=== PATIENT | male | born 1975 | race Caucasian/White ===

== ENCOUNTER 2016-12-06 12:29 | Emergency (ER) | payer OTHER ==
[~2016-12-06] VITALS: Ht 175.3 cm; Wt 98.0 kg
[2016-12-06 12:33] VITALS: BP 140/96; PULSE 88; RESP 16; TEMP 98; O2SAT 97
[2016-12-06] MEDS ORDERED: PRED20 PO (13:37)
[2016-12-06] MEDS ORDERED: ROBA750T PO (13:37)
[2016-12-06] MEDS ORDERED: IBUP800T23 PO (13:37)
--- NOTE | 2016-12-06 13:44 | PD ---
HPI Chief Complaint: Back/ Neck Pain or Injury Time Seen by Provider: 13:25 Travel History International Travel<30 days: No Contact w/Intl Traveler<30days: No Traveled to known affect area: No History of Present Illness HPI 41-year-old male presents to the emergency room for evaluation of right-sided low back pain that radiates down the right lower extremity for the past 3 days. Patient has history of sciatica that occurred 1 month ago and lasted 2 weeks but improved on its own. States symptoms recurred 3 days ago without any trauma or injury. Pain is worsened with ambulation and range of motion of the back. States he has to lean to the left to get relief. He has no pain when he lies flat on his back. He took 800 mg of ibuprofen onset of symptoms but did not improve his symptoms at all so he stopped taking it. 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 Denies loss of bowel or bladder control, saddle anesthesia, or lower extremity paresthesias. Denies IV drug use, fever, chills, weight loss. PFSH Past Medical History Hx Anticoagulant Therapy: No Cardiovascular Problems: Yes (HTN) Diabetes: No Hypertension: Yes (BORDERLINE) Immunizations Current: Yes Tetanus Vaccination: < 5 Years Influenza Vaccination: No Past Surgical History Other Surgery: Yes (RIGHT INGUINAL HERNIA REPAIR) Social History Alcohol Use: No Tobacco Use: No (FORMER) Substance Use: No Allergies-Medications (Allergen,Severity, Reaction): Coded Allergies: No Known Allergies (Unverified , 12/06/16) Reported Meds & Prescriptions Reported Meds & Active Scripts Active Robaxin (Methocarbamol) 750 Mg Tab 750 Mg PO Q8HR Ibuprofen 800 Mg Tab 800 Mg PO Q8H PRN Prednisone 20 Mg Tab 40 Mg PO DAILY 5 Days Review of Systems Except as stated in HPI: all other systems reviewed are Neg Physical Exam Narrative GENERAL: Well-nourished, well-developed male in no acute distress. Afebrile. Ambulatory. SKIN: Warm and dry. No erythema or ecchymosis. HEAD: Normocephalic. EYES: No scleral icterus. No injection or drainage. NECK: Supple, trachea midline. No JVD or lymphadenopathy. BACK: No CVA tenderness. No rash. No point tenderness on palpation of the spine. Tenderness to palpation in the right paraspinous lumbar musculature. Strength 5/5 and equal in lower extremities. 2+ patellar and Achilles reflexes the right lower extremity. Data Data Last Documented VS Vital Signs Date Time Temp Pulse Resp B/P Pulse Ox O2 Delivery O2 Flow Rate FiO2 12/06/16 12:33 98.0 88 16 140/96 97 Orders Cyclobenzaprine (Flexeril) (12/06/16 13:45) Ibuprofen (Motrin) (12/06/16 13:45) [facility] Medical Decision Making Medical Screen Exam Complete: Yes Emergency Medical Condition: Yes Medical Record Reviewed: Yes Differential Diagnosis Degenerative disc disease versus sciatica versus lumbar strain Narrative Course 41-year-old male presents to the emergency room for evaluation of right-sided low back pain that radiates down his right leg for the past 3 days. Patient had similar symptoms 1 month ago that resolved on its own. States this time his pain is slightly worse. No focal neurological deficits. No red flag symptoms. No midline tenderness. Patient is ambulatory without difficulty. Right lower extremity reflexes are 2+. He was given Flexeril and ibuprofen in the emergency room. Discharged with prescriptions for every senior care, Robaxin, and prednisone. Told to follow up with a primary care physician or return to the emergency room for worsening symptoms. He understands and agrees to this plan. Diagnosis Primary Impression: Right-sided low back pain with sciatica Qualified Code: M54.41 - Acute right-sided low back pain with right-sided sciatica Referrals: Primary Care Physician Patient Instructions: General Instructions, Sciatica (ED) Additional Instructions: Rest and drink plenty of fluids. Prednisone as directed, until gone. Take Robaxin as directed, as needed for pain. Take ibuprofen with food as directed, as needed for pain. Apply ice to the affected area for 20 minutes at a time, as needed for pain and swelling. Follow-up with a primary care physician. Return to the emergency room for worsening symptoms. Med/Other Pt SpecificInfo: Prescription(s) given Scripts Methocarbamol (Robaxin)750 Mg [id number] Mg PO Q8HR #21 TAB Ref 0 Prov:Ramon Nagel MD 12/06/16 Ibuprofen 800 Mg [id number] Mg PO Q8H PRN (Pain/Inflammation) #21 TAB Ref 0 Prov:Ramon Nagel MD 12/06/16 Prednisone 20 Mg Tab40 Mg PO DAILY 5 Days Ref 0 Prov:Ramon Nagel MD 12/06/16 Disposition: 01 DISCHARGE HOME Condition: Stable Michelle Mcmanus Dec 06, 2016 13:44
[2016-12-06] MEDS ORDERED: IBUPROFEN 800 MG TAB PO ONE (13:45)
[2016-12-06] MEDS ORDERED: CYCLOBENZAPRINE HCL 10 MG TAB PO ONE (13:45)
== END 2016-12-06 14:01 | disposition home or self-care (01) ==
LOC: PHED 12:29
DX: M54.41 Lumbago with sciatica, right side (principal)
CPT/HCPCS: 99283